=== PATIENT | male | born 1990 | race Caucasian/White ===

== ENCOUNTER 2018-01-03 16:00 | Emergency (ER) | payer OTHER ==
[2018-01-03 16:08] VITALS: BP 114/70
--- NOTE | 2018-01-03 16:24 | UC ---
Skin Complaint HPI - HPI Summary HPI Summary: This is germain Goldbergsilvia documenting for attending Ervin Workman MD. This patient is a 27 year old M presenting to [facility] – [place] with a chief complaint of index finger infection that hasnt been draining for two days. The patient rates the pain 3/10 in severity. Pt states that he has been soaking it in warm vinegar but it hasnt helped alleviate his symptoms. NKDA. - History of Current Complaint Chief Complaint: UCUpperExtremity Time Seen by Provider: 01/03/18 16:11 Stated Complaint: FINGER PAIN Hx Obtained From: Patient Onset/Duration: Sudden Onset Skin Exposure Onset/Duration: Days Ago - 2 Timing: Constant Onset Severity: Mild Current Severity: Mild Pain Intensity: 3 Pain Scale Used: 0-10 Numeric Location: Discrete - right third finger, Hand (Right) Character: Swelling - Allergy/Home Medications Allergies/Adverse Reactions: Allergies Allergy/AdvReac Type Severity Reaction Status Date / Time bee venom protein (honey bee) Allergy Difficulty Verified 01/03/18 16:08 Breathing Review of Systems Constitutional: Negative Skin: Other - infection right third finger Eyes: Negative ENT: Negative Respiratory: Negative Cardiovascular: Negative Gastrointestinal: Negative Genitourinary: Negative Motor: Negative Neurovascular: Negative Musculoskeletal: Edema - right third finger Neurological: Negative Psychological: Negative Is Patient Immunocompromised?: No All Other Systems Reviewed And Are Negative: Yes PMH/Surg Hx/FS Hx/Imm Hx Previously Healthy: Yes - Surgical History Surgical History: Yes Surgery Procedure, Year, and Place: ANKLE SURGERY, ACHILLES TENDON - Family History Known Family History: Positive: Hypertension - Social History Alcohol Use: Occasionally Substance Use Type: None Substance Use Comment - Amount & Last Used: occasionally Smoking Status (MU): Light Every Day Tobacco Smoker Type: Cigarettes Amount Used/How Often: >1/2 ppd Physical Exam - Summary Physical Exam Summary: General: well-appearing, no pain distress Skin: warm, color reflects adequate perfusion, dry Head: normal Eyes: EOMI, CHARLY ENT: normal Neck: supple, nontender Respiratory: CTA, breath sounds present Cardiovascular: RRR Abdomen: soft, nontender Bowel: present Musculoskeletal: normal, strength/ROM intact Hand: Right 3rd finger infection on the radial aspect accompanied by edema. Neurological: sensory/motor intact, A&O x3 Psychological: affect/mood appropriate Triage Information Reviewed: Yes Vital Signs: Initial Vital Signs Temp 98 F 01/03/18 16:01 Pulse 64 01/03/18 16:01 Resp 16 01/03/18 16:01 BP 114/70 01/03/18 16:01 Pulse Ox 98 01/03/18 16:01 Vital Signs Reviewed: Yes Course/Dx - Course Course Of Treatment: ATTEPMTED DRAINAGE BY PA; ONLY SEROSANGUINEOUS DRAINAGE. RX KEFLEX. F/U PMD OR RETURN IF NOT IMPROVED. - Diagnoses Provider Diagnoses: RIGHT FINGER PARONYCHIA Procedures - Incision and Drainage Right Finger Site: Third finger on the radial aspect Instrument(s): Needle - 22 gauge Packing: Drain - Serous fluid was drained Discharge - Sign-Out/Discharge Documenting (check all that apply): Patient Departure - Discharge Plan Condition: Stable Disposition: HOME Prescriptions: Cephalexin CAP* [Keflex CAP*] 500 mg PO QID #40 cap Patient Education Materials: Paronychia (ED) Forms: *Work Release Referrals: Pastor Rios MD [Primary Care Provider] - Additional Instructions: FOLLOW UP WITH YOUR DOCTOR IF NOT COMPLETELY IMPROVED. GET RECHECKED FOR ANY WORSENING OF YOUR CONDITION OR QUESTIONS OR CONCERNS. - Billing Disposition and Condition Condition: STABLE Disposition: Home
== END 2018-01-03 16:28 | disposition home or self-care (01) ==
LOC: UCEAST 16:00
DX: L03.011 Cellulitis of right finger (principal); Z91.030 Bee allergy status; F17.210 Nicotine dependence, cigarettes, uncomplicated
CPT/HCPCS: 10060; 99212; G0463

== ENCOUNTER 2019-01-22 18:24 | Emergency (ER) | payer OTHER ==
[2019-01-22] MEDS ORDERED: Famotidine IV* 10 MG/ML 2 ML (20 mg) ONE ×2 (18:53→19:07)
[2019-01-22] MEDS ORDERED: NS 0.9% 1000 ML** 1,000 ML IV ONE (18:58)
[2019-01-22] MEDS ORDERED: EPINEPHRINE 1 MG/ML 1 ML VIAL ONE (19:00)
[2019-01-22] MEDS ORDERED: diPHENhydraMINE IV* 50 MG/ML 1 ml VIAL (BENADRYL) ONE (19:03)
[2019-01-22] MEDS ORDERED: methylPREDNISolone 125 MG* 2 ML VIAL ONE (19:04)
--- NOTE | 2019-01-22 19:05 | ED ---
Allergic Reaction/Systemic - HPI Summary HPI Summary: This patient is a 28 year old M presenting to [facility] [place] accompanied by mother with a chief complaint of multiple bee stings occurring an hour ago. Pt was stung twice left hand, once on right hand, multiple times on neck and back of head. Pt reports swelling of lips, hot face. Pt denies SOB, allergies to bee, and nausea. - History of Current Complaint Chief Complaint: EDAllergicReaction Time Seen by Provider: 01/22/19 18:55 Hx Obtained From: Patient Onset/Duration: Sudden Onset, Still Present Timing: Constant Severity Initially: Mild Severity Currently: None Pain Intensity: 0 Pain Scale Used: 0-10 Numeric Location: Diffuse Character: Swelling Aggravating Factor(s): Nothing - Bee Stings Alleviating Factor(s): Nothing Associated Signs And Symptoms: Negative: Difficulty Breathing - Allergies/Home Medications Allergies/Adverse Reactions: Allergies Allergy/AdvReac Type Severity Reaction Status Date / Time bee venom protein (honey bee) Allergy Difficulty Verified 01/22/19 19:30 Breathing PMH/Surg Hx/FS Hx/Imm Hx Endocrine/Hematology History: Denies: Hx Diabetes, Hx Thyroid Disease Cardiovascular History: Denies: Hx Hypertension, Hx Pacemaker/ICD Respiratory History: Denies: Hx Asthma, Hx Chronic Obstructive Pulmonary Disease (COPD) GI History: Denies: Hx Ulcer History: Denies: Hx Renal Disease Musculoskeletal History: Reports: Other Musculoskeletal History - RIGHT ANKLE SPRAIN Denies: Hx Scoliosis Sensory History: Denies: Hx Contacts or Glasses, Hx Hearing Aid Opthamlomology History: Denies: Hx Contacts or Glasses Neurological History: Denies: Hx Headaches, Other Neuro Impairments/Disorders Psychiatric History: Reports: Hx Anxiety - NO MEDS Denies: Hx Panic Disorder, Hx of Violent Episodes Against Others - Surgical History Surgery Procedure, Year, and Place: ANKLE SURGERY, ACHILLES TENDON Hx Anesthesia Reactions: No Infectious Disease History: No Infectious Disease History: Reports: History Other Infectious Disease - STAPH INFECTION Denies: Hx Hepatitis, Hx Human Immunodeficiency Virus (HIV), Traveled Outside the [place] in Last 30 Days - Family History Known Family History: Positive: Hypertension - Social History Occupation: Employed Full-time Alcohol Use: Occasionally Substance Use Type: Reports: None Substance Use Comment - Amount & Last Used: occasionally Hx Tobacco Use: Yes Smoking Status (MU): Light Every Day Tobacco Smoker Type: Cigarettes Amount Used/How Often: >1/2 ppd Review of Systems Constitutional: Other - pos - multiple bee stings ENT: Other - pos - swelling of lips Negative: Shortness Of Breath Negative: Nausea All Other Systems Reviewed And Are Negative: Yes Physical Exam - Summary Physical Exam Summary: Constitutional: Well-developed, Well-nourished, Alert. (-) Distressed Skin: Warm, Diffuse hives to left arm; Flushing of the skin HENT: Normocephalic; Atraumatic; Upper lip swelling, no stridor, no uvula swelling. Eyes: Conjunctiva normal Neck: Musculoskeletal ROM normal neck. (-) JVD, (-) Stridor, (-) Nuchal rigidity Cardio: Rhythm regular, rate normal, Heart sounds normal; Intact distal pulses; Radial pulses are 2+ and symmetric. (-) Murmur Pulmonary/Chest wall: Effort normal. (-) Respiratory distress, (-) Wheezes, (-) Rales Abd: Soft, (-) tenderness, (-) Distension, (-) Guarding, (-) Rebound Musculoskeletal: (-) Edema Lymph: (-) Cervical adenopathy Neuro: Alert, Oriented x3 Psych: Mood and affect Normal Triage Information Reviewed: Yes Vital Signs On Initial Exam: Initial Vitals Temp Pulse Resp BP Pulse Ox 98.3 F 56 20 97/58 97 01/22/19 18:41 01/22/19 18:41 01/22/19 18:41 01/22/19 18:41 01/22/19 18:41 Vital Signs Reviewed: Yes Diagnostics - Vital Signs Vital Signs Temp Pulse Resp BP Pulse Ox 01/22/19 18:41 98.3 F 56 20 97/58 97 - Laboratory Lab Statement: Any lab studies that have been ordered have been reviewed, and results considered in the medical decision making process. Re-Evaluation - Re-Evaluation First Eval Re-Evaluation Time: 21:01 Comment: Discussed plan of care with pt. Feels better, lip swelling improved, hives gone. Allergic Reaction Course/Dx - Course Course Of Treatment: 28 y/o male presents with anaphylactic reaction to bee sting. - lip swelling, give epi, solumedrol, benadryl, pepcid, obs for 4 hours after initial symptoms (1800) for biphasic reaction - Diagnoses Provider Diagnoses: Anaphylaxis Discharge - Sign-Out/Discharge Documenting (check all that apply): Patient Departure - Discharge Patient Received Moderate/Deep Sedation with Procedure: No - Discharge Plan Condition: Stable Disposition: HOME Prescriptions: EPINEPHrine [Epipen] 0.3 mg IJ ONCE PRN #1 auto.injct PRN Reason: Allergy Symptoms Patient Education Materials: Anaphylaxis (ED) Referrals: Pastor Rios MD [Primary Care Provider] - Additional Instructions: Epi pen to go Carry an EPI-PEN (or similar device) WITH YOU AT ALL TIMES. You should keep one on your person at ALL TIMES. Keep one in your wallet, purse, or pocket, one at home, one at work, and one in your car. If you feel symptoms of another allergic reaction coming on- use the EPI-PEN IMMEDIATELY and then call 911. DO NOT WAIT TO INJECT YOURSELF IF YOU HAVE SYMPTOMS- THE DELAY COULD BE FATAL. IF YOU HAVE ANY DOUBT, it is better to inject yourself rather than wait. If you still have symptoms 5 minutes after giving yourself an EPI-PEN, give yourself a second epi-pen injection. Make sure to check the expiration dates on your epi- pen and refill them BEFORE they . - Billing Disposition and Condition Condition: STABLE Disposition: Home - Attestation Statements Document Initiated by Chery: Yes Documenting Scribe: Sidra Cutler Provider For Whom Chery is Documenting (Include Credential): Dr. Drea Michael MD Scribe Attestation: Sidra Carroll scribed for Dr. Drea Michael MD on 01/22/19 at 2130. Scribe Documentation Reviewed: Yes Provider Attestation: The documentation as recorded by the Sidra groves accurately reflects the service I personally performed and the decisions made by me, Dr. Drea Michael MD Status of Scribe Document: Viewed
[2019-01-22 21:49] VITALS: BP 115/58
== END 2019-01-22 21:48 | disposition home or self-care (01) ==
LOC: ED 18:24
DX: T63.441A Toxic effect of venom of bees, accidental (unintentional), initial encounter (principal); Y92.9 Unspecified place or not applicable; F17.210 Nicotine dependence, cigarettes, uncomplicated
CPT/HCPCS: 96360; 96361; 99283; J1200; J2930

== ENCOUNTER 2019-04-07 14:48 | Emergency (ER) | payer OTHER ==
[2019-04-07 14:59] VITALS: BP 105/39
--- NOTE | 2019-04-07 15:06 | UC ---
General HPI - HPI Summary HPI Summary: Patient is a 29yo male presenting with tick bite to left posterior arm that he noticed last night. States he removed it with tweezers but removed the head that was still attached with a knife. Patient is concerned that some of the tick is still attached. Believes the tick was attached for approximately 2 or 3 days. Denies redness or warmth to the area. Denies drainage. Denies bleeding. Denies fever, chills, nausea, vomiting. - History of Current Complaint Chief Complaint: UCSkin Stated Complaint: TICK BITE Hx Obtained From: Patient Onset/Duration: Gradual Onset Pain Intensity: 0 - Allergy/Home Medications Allergies/Adverse Reactions: Allergies Allergy/AdvReac Type Severity Reaction Status Date / Time bee venom protein (honey bee) Allergy Difficulty Verified 04/07/19 15:00 Breathing PMH/Surg Hx/FS Hx/Imm Hx Previously Healthy: Yes - Surgical History Surgical History: Yes Surgery Procedure, Year, and Place: ANKLE SURGERY- ACHILLES TENDON - Family History Known Family History: Positive: Hypertension, Non-Contributory - Social History Alcohol Use: None Substance Use Type: Marijuana Substance Use Comment - Amount & Last Used: occasionally Smoking Status (MU): Light Every Day Tobacco Smoker Type: Cigarettes Amount Used/How Often: >1/2 ppd Household Exposure Type: Cigarettes Review of Systems All Other Systems Reviewed And Are Negative: No Constitutional: Positive: Negative. Negative: Fever, Chills Skin: Positive: Other - tick bite to posterior arm Respiratory: Positive: Negative Cardiovascular: Positive: Negative Gastrointestinal: Positive: Negative. Negative: Vomiting, Nausea Musculoskeletal: Positive: Negative Neurological: Positive: Negative Physical Exam Triage Information Reviewed: Yes Appearance: Well-Appearing, No Pain Distress, Well-Nourished Vital Signs: Initial Vital Signs Temp 98 F 04/07/19 14:55 Pulse 57 04/07/19 14:55 Resp 18 04/07/19 14:55 BP 105/39 04/07/19 14:55 Pulse Ox 99 04/07/19 14:55 Vital Signs Reviewed: Yes Eyes: Positive: Conjunctiva Clear ENT: Positive: Hearing grossly normal Neck: Positive: Supple Respiratory Exam: Normal Respiratory: Positive: Lungs clear, Normal breath sounds, No respiratory distress Cardiovascular Exam: Normal Cardiovascular: Positive: RRR Neurological: Positive: Alert Psychological: Positive: Age Appropriate Behavior Skin: Positive: Other - 1cm area of erythema noted on left posterior arm where tick was attached. no sign of infection. Course/Dx - Course Course Of Treatment: Patient was unsure of time tick was attached and stated he feels more comfortable being treated with prophylactic dose Doxy for Lyme disease. I treated with one time dose of doxy. Educated on tick bites and lyme disease. Instructed to follow up with PCP if needed. Patient voiced understanding and agreed with treatment plan. - Diagnoses Provider Diagnosis: Tick bite of upper arm Discharge ED - Sign-Out/Discharge Documenting (check all that apply): Patient Departure All imaging exams completed and their final reports reviewed: No Studies - Discharge Plan Condition: Stable Disposition: HOME Prescriptions: DOXYcycline CAP(*) [DOXYcycline 100MG CAP(*)] 200 mg PO ONCE #2 cap Patient Education Materials: Tick Bite (ED) Forms: *Work Release Referrals: Pastor Rios MD [Primary Care Provider] - If Needed Additional Instructions: As discussed, take the one-time dose of Doxycycline as prescribed to prevent Lyme Disease. No further treatment is required. Follow up with your primary care physician if within the next month or so you experience weakness, severe headache, fever, chills, or a rash where you were the tick bit you. Return or go to the emergency room if you experience increasing redness, warmth , drainage, nausea, or vomiting within the next few days. - Billing Disposition and Condition Condition: STABLE Disposition: Home - Attestation Statements Provider Attestation: Per institutional requirements, I have reviewed the chart, however, I was not consulted specifically or made aware of this patient by the midlevel provider. I did not personally evaluate, interact with , or disposition this patient.
== END 2019-04-07 15:33 | disposition home or self-care (01) ==
LOC: UCEAST 14:48
DX: S40.862A Insect bite (nonvenomous) of left upper arm, initial encounter (principal); F17.210 Nicotine dependence, cigarettes, uncomplicated; Z91.030 Bee allergy status; W57.XXXA Bitten or stung by nonvenomous insect and other nonvenomous arthropods, initial encounter; Y92.9 Unspecified place or not applicable
CPT/HCPCS: 99212; G0463

== ENCOUNTER 2019-06-18 11:53 | Emergency (ER) | payer OTHER ==
[2019-06-18 12:01] VITALS: BP 122/66
--- NOTE | 2019-06-18 12:05 | UC ---
Skin Complaint HPI - HPI Summary HPI Summary: 29 yo male presents with tick bite. He tells me that back in March 2019 he was bitten by a tick to his left upper arm. He was given 2 tabs of doxycycline as prophylactic for lyme. Over the last week has had joint pain and discomfort and is concerned that he has lyme disease. He is asking for labwork testing today. He denies fever, chills, fatigue, headache, dizziness, rashes, n/v. - History of Current Complaint Chief Complaint: UCGeneralIllness Time Seen by Provider: 06/18/19 12:05 Stated Complaint: TICK BITE Hx Obtained From: Patient Onset/Duration: Gradual Onset Onset Severity: Mild Current Severity: Mild Pain Intensity: 2 Pain Scale Used: 0-10 Numeric - Allergy/Home Medications Allergies/Adverse Reactions: Allergies Allergy/AdvReac Type Severity Reaction Status Date / Time bee venom protein (honey bee) Allergy Difficulty Verified 04/07/19 15:00 Breathing PMH/Surg Hx/FS Hx/Imm Hx - Additional Past Medical History Additional PMH: None - Surgical History Surgical History: Yes Surgery Procedure, Year, and Place: ANKLE SURGERY- ACHILLES TENDON - Family History Known Family History: Positive: Hypertension, Non-Contributory - Social History Lives: With Family Alcohol Use: None Substance Use Type: None Substance Use Comment - Amount & Last Used: occasionally Smoking Status (MU): Light Every Day Tobacco Smoker Type: Cigarettes Amount Used/How Often: >1/2 ppd Household Exposure Type: Cigarettes Review of Systems All Other Systems Reviewed And Are Negative: No Constitutional: Positive: Negative Skin: Positive: Other - Tick bite left upper arm Respiratory: Positive: Negative Cardiovascular: Positive: Negative Motor: Positive: Negative Neurovascular: Positive: Negative Musculoskeletal: Positive: Other: - Joint pain Neurological: Positive: Negative Psychological: Positive: Negative Physical Exam - Summary Physical Exam Summary: GENERAL: NAD. WDWN. No pain distress. SKIN: No rashes, sores, lesions, or open wounds. HEENT: Head: AT/NC Eyes: EOM intact. Conjunctiva clear without inflammation or discharge. Ears: Hearing grossly normal. TMs intact, no bulging, erythema, or edema. Nose: Nasal mucosa pink and moist. NTTP maxillary and frontal sinus. Throat: Posterior oropharynx without exudates, erythema, or tonsillar enlargement. Uvula midline. NECK: Supple. Nontender. No lymphadenopathy. CHEST: CTAB. No r/r/w. No accessory muscle use. Breathing comfortably and in no distress. CV: RRR. Pulses intact. Cap refill <2seconds MSK: Moves all extremities. No edema. NEURO: Alert. PSYCH: Age appropriate behavior. Triage Information Reviewed: Yes Vital Signs: Initial Vital Signs Temp 98.7 F 06/18/19 11:57 Pulse 71 06/18/19 11:57 Resp 15 06/18/19 11:57 BP 122/66 06/18/19 11:57 Pulse Ox 100 06/18/19 11:57 Vital Signs Reviewed: Yes Course/Dx - Course Course Of Treatment: Low suspicion for lyme disease, but will draw for testing given pt's concern and treat prn. - Diagnoses Provider Diagnosis: Joint pain Discharge ED - Sign-Out/Discharge Documenting (check all that apply): Patient Departure All imaging exams completed and their final reports reviewed: No Studies - Discharge Plan Condition: Stable Disposition: HOME Patient Education Materials: Lyme Disease (ED), Tick Bite (ED) Referrals: Pastor Rios MD [Primary Care Provider] - Additional Instructions: We have drawn for lyme disease today and should have results within 3-5 days -- - please call to ask about your results if you have not heard from our clinic - Billing Disposition and Condition Condition: STABLE Disposition: Home - Attestation Statements Provider Attestation: This patient was not seen by me. I was available for consult. Chart reviewed. VICKY
== END 2019-06-18 12:22 | disposition home or self-care (01) ==
LOC: UCEAST 11:53
DX: M25.50 Pain in unspecified joint (principal); S40.862D Insect bite (nonvenomous) of left upper arm, subsequent encounter; F17.210 Nicotine dependence, cigarettes, uncomplicated; W57.XXXD Bitten or stung by nonvenomous insect and other nonvenomous arthropods, subsequent encounter; Z91.030 Bee allergy status
CPT/HCPCS: 36415; 86618; 99211; G0463

== ENCOUNTER 2019-08-17 09:51 | Emergency (ER) | payer OTHER ==
[2019-08-17 10:04] VITALS: BP 118/60
--- NOTE | 2019-08-17 11:20 | UC ---
Complaint Male HPI - HPI Summary HPI Summary: PATIENT COMPLAINING OF MILD DYSURIA AND LOWER ABDOMINAL PRESSURE FOR 5 DAYS. NO FEVER, BACK PAIN, NAUSEA. NO PENILE DISCHARGE OR TESTICULAR PAIN. ADMITS HE HAS BEEN WORKING A LOT RECENTLY AND NOT DRINKING VERY MUCH WATER BUT HE IS DRINKING A LOT OF COFFEE. GIRLFRIEND HAD A UTI RECENTLY SO HE IS WORRIED ABOUT THIS. HE IS NOT AT ALL CONCERNED ABOUT STD. - History of Current Complaint Chief Complaint: UCGU Stated Complaint: URINARY ISSUE Time Seen by Provider: 08/17/19 10:46 Hx Obtained From: Patient Onset/Duration: Gradual Onset, Lasting Days, Still Present Severity Initially: Mild Severity Currently: Mild Pain Intensity: 2 Pain Scale Used: 0-10 Numeric Location: Suprapubic Character: Burning Aggravating Factor(s): Voiding Alleviating Factor(s): Nothing Associated Signs And Symptoms: Positive: Dysuria. Negative: Back Pain, Fever, Nausea, Penile Discharge - Allergies/Home Medications Allergies/Adverse Reactions: Allergies Allergy/AdvReac Type Severity Reaction Status Date / Time bee venom protein (honey bee) Allergy Difficulty Verified 08/17/19 10:05 Breathing Home Medications: Home Medications EPINEPHrine [Epipen] 0.3 mg IJ ONCE PRN #1 auto.injct 01/22/19 [Rx Confirmed 11/30] PMH/Surg Hx/FS Hx/Imm Hx Previously Healthy: Yes - Surgical History Surgical History: Yes Surgery Procedure, Year, and Place: ANKLE SURGERY- ACHILLES TENDON - Family History Known Family History: Positive: Hypertension - Social History Alcohol Use: None Substance Use Type: None Substance Use Comment - Amount & Last Used: occasionally Smoking Status (MU): Light Every Day Tobacco Smoker Type: Cigarettes Amount Used/How Often: >1/2 ppd Household Exposure Type: Cigarettes Review of Systems All Other Systems Reviewed And Are Negative: Yes Constitutional: Positive: Negative Respiratory: Positive: Negative Cardiovascular: Positive: Negative Gastrointestinal: Positive: Abdominal Pain - LOWER ABD PAIN Genitourinary: Positive: Dysuria. Negative: Hematuria, Frequency, Urgency Physical Exam Triage Information Reviewed: Yes Appearance: Well-Appearing, No Pain Distress, Well-Nourished Vital Signs: Initial Vital Signs Temp 98 F 08/17/19 10:02 Pulse 59 08/17/19 10:02 Resp 16 08/17/19 10:02 BP 118/60 08/17/19 10:02 Pulse Ox 100 08/17/19 10:02 Laboratory Tests 08/17/19 10:32 POC Urine Color Yellow POC Urine Clarity Clear POC Urine pH 5.5 POC Ur Specif [place] >= 1.030 POC Urine Protein Negative POC Ur Glucose (UA) Negative POC Urine Ketones Negative POC Urine Blood Trace-intact A POC Urine Nitrite Negative POC Urine Bilirubin Negative POC Urine Urobilinogen 0.2 POC U Leukocyte Esteras Negative Vital Signs Reviewed: Yes Eyes: Positive: Conjunctiva Clear ENT: Positive: Hearing grossly normal Neck: Positive: Supple Respiratory: Positive: No respiratory distress, No accessory muscle use Cardiovascular: Positive: Pulses Normal Abdomen Description: Positive: Soft, Other: - MILD SUPRAPUBIC TENDERNESS. Negative: CVA Tenderness (R), CVA Tenderness (L), Distended, Guarding Musculoskeletal: Positive: No Edema Neurological: Positive: Alert Psychological: Positive: Age Appropriate Behavior Skin: Negative: Rashes Complaint Male Course/Dx - Course Course Of Treatment: I SUSPECT PATIENT'S URINARY SYMPTOMS ARE DUE TO BEING IN A STATE OF RELATIVE DEHYDRATION. HE ADMITS TO WORKING A LOT RECENTLY AND DRINKING A LOT OF COFFEE AND NOT A LOT OF WATER. URINE DIP TODAY NOT SUGGESTIVE OF UTI. HE DOES HAVE TRACE BLOOD AND A HIGH SPECIFIC GRAVITY WHICH BOTH CAN BE EXPLAINED BY BEING IN A RELATIVE STATE OF DEHYDRATION. I ENCOURAGED HIM TO DRINK AT LEAST 2 L OF WATER DAILY. IF HIS DISCOMFORT DOES NOT RESOLVE WITH FLUID HYDRATION HE SHOULD SEEK FOLLOW-UP. I ALSO RECOMMENDED HE REPEAT HIS URINE TEST IN A COUPLE OF WEEKS TO ENSURE THE BLOOD HAS CLEARED. IF IT HAS NOT HE WILL FOLLOW-UP WITH UROLOGY. - Differential Dx/Diagnosis Provider Diagnosis: Dysuria, Hematuria Discharge ED - Sign-Out/Discharge Documenting (check all that apply): Patient Departure All imaging exams completed and their final reports reviewed: No Studies - Discharge Plan Condition: Stable Disposition: HOME Patient Education Materials: Hematuria (ED), Dysuria (ED) Referrals: [facility] [Provider Group] Care [facility] [Outside] Pastor Rios MD [Primary Care Provider] - 2 Weeks Additional Instructions: I SUSPECT YOUR URINARY DISCOMFORT IS DUE TO RELATIVE DEHYDRATION. THERE IS NO SIGN OF BACTERIAL INFECTION ON YOUR URINE TEST TODAY. TRY TO DRINK AT LEAST 2 L OF WATER DAILY. REMEMBER THAT COFFEE IS DEHYDRATING. YOU HAD TRACE BLOOD IN YOUR URINE SAMPLE WHICH I THINK IS LIKELY DUE AGAIN TO YOUR RELATIVE STATE OF DEHYDRATION. THIS SHOULD RESOLVE WITH FLUID. REPEAT YOUR URINE TEST IN ABOUT 2 WEEKS TO ENSURE THE BLOOD HAS CLEARED. IF IT HAS NOT I RECOMMEND YOU FOLLOW- UP WITH A UROLOGIST FOR FURTHER EVALUATION. IF YOUR SYMPTOMS DO NOT RESOLVE WITH FLUID HYDRATION AGAIN SEEK FOLLOW-UP. CALL THE NUMBER BELOW FOR ASSISTANCE IN ESTABLISHING WITH A PCP An additional resource available to assist in finding the appropriate physician for your health care needs is the [facility] ([facility]). You may contact them by calling [phone]. - Billing Disposition and Condition Condition: STABLE Disposition: Home
[2019-08-20 12:47] LABS: Chlamydia trachomatis NAA Positive (Negative); Neisseria gonorrhoeae (GC) NAA Negative (Negative)
--- NOTE | 2019-08-20 14:06 | UC ---
- Progress Note Progress Note: Please call patient and inform him that his urine tested positive for chlamydia. 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 No further treatment needed after this. Follow up in 2-3 weeks to make sure infection has resolved. Please inform the patient that he needs to notify his partner so that they can seek treatment as well. Course/Dx - Diagnoses Provider Diagnoses: Dysuria, Hematuria Discharge ED - Sign-Out/Discharge Documenting (check all that apply): Post-Discharge Follow Up All imaging exams completed and their final reports reviewed: No Studies - Discharge Plan Condition: Stable Disposition: HOME Prescriptions: Azithromycin 1,000 mg PO ONCE #2 tablet Patient Education Materials: Hematuria (ED), Dysuria (ED) Referrals: [facility] [Provider Group] [facility] [Outside] Pastor Rios MD [Primary Care Provider] - 2 Weeks Additional Instructions: I SUSPECT YOUR URINARY DISCOMFORT IS DUE TO RELATIVE DEHYDRATION. THERE IS NO SIGN OF BACTERIAL INFECTION ON YOUR URINE TEST TODAY. TRY TO DRINK AT LEAST 2 L OF WATER DAILY. REMEMBER THAT COFFEE IS DEHYDRATING. YOU HAD TRACE BLOOD IN YOUR URINE SAMPLE WHICH I THINK IS LIKELY DUE AGAIN TO YOUR RELATIVE STATE OF DEHYDRATION. THIS SHOULD RESOLVE WITH FLUID. REPEAT YOUR URINE TEST IN ABOUT 2 WEEKS TO ENSURE THE BLOOD HAS CLEARED. IF IT HAS NOT I RECOMMEND YOU FOLLOW- UP WITH A UROLOGIST FOR FURTHER EVALUATION. IF YOUR SYMPTOMS DO NOT RESOLVE WITH FLUID HYDRATION AGAIN SEEK FOLLOW-UP. CALL THE NUMBER BELOW FOR ASSISTANCE IN ESTABLISHING WITH A PCP An additional resource available to assist in finding the appropriate physician for your health care needs is [facility] ([facility]). You may contact them by calling [phone]. - Billing Disposition and Condition Condition: STABLE Disposition: Home
== END 2019-08-17 11:20 | disposition home or self-care (01) ==
LOC: UCEAST 09:51
DX: R30.0 Dysuria (principal); R31.9 Hematuria, unspecified; R10.30 Lower abdominal pain, unspecified; F17.210 Nicotine dependence, cigarettes, uncomplicated; Z91.030 Bee allergy status
CPT/HCPCS: 81003; 87491; 87591; 99211; G0463